=== PATIENT | female | born 1970 | race Caucasian/White ===

== ENCOUNTER → 2020-11-27 15:37 | Outpatient (CLI) | payer OTHER, SELFPAY ==
--- NOTE | 2020-11-27 15:39 | DI.MRI.S_ITS ---
PROCEDURE: MR LUMBAR SPINE WO CON INDICATIONS: L2/3 chronic progressive LBP TECHNIQUE: Noncontrast sagittal T1 spin echo and T2 fast echo, sagittal STIR, axial T1 and T2 fast spin echo through the lumbar spine. In cases with scoliosis, additional coronal T2 fast spin echo may be performed. COMPARISON: [facility], RG, XR PELVIS WITH LATERAL RT, 09/01/2020, 8:38. [facility], RG, XR L-SPINE 2-3V, 09/01/2020, 8:40. FINDINGS: Image quality: Excellent. Alignment and Curvature: 5 lumbar type vertebral bodies are present by plain film. There is loss of normal lumbar lordosis. Bone Marrow: Marrow is of normal overall signal. No acute vertebral body compression fractures. There is mild posterior wedging of the L3 vertebral body. Moderate reactive signal within the endplates adjacent to the L2-L3 intervertebral disc. Spinal Cord: Conus medullaris terminates at the mid L1 level. Visualized cord demonstrates normal signal and size. Paraspinous Soft Tissues: No paravertebral masses. T12-L1: Normal appearance. L1-L2: Normal appearance. L2-L3: Severe disc height loss and desiccation. Mild diffuse disc bulge with superimposed small central and right posterolateral protrusions. Mild epidural lipomatosis. Mild canal stenosis. Mild bilateral foraminal stenosis. L3-L4: Mild diffuse disc bulge. No significant canal stenosis. Mild bilateral foraminal stenosis. L4-L5: Mild facet hypertrophy bilaterally. Mild diffuse disc bulge. Mild canal stenosis. No foraminal stenosis. L5-S1: Mild disc desiccation and diffuse disc bulge. No significant canal, or foraminal stenosis. IMPRESSION: 1. Multilevel degenerative disc and facet disease, as well as ligamentum flavum hypertrophy and epidural lipomatosis. 2. Mild multilevel canal and foraminal stenoses. No neural impingement. 3. Chronic appearing mild L3 compression fracture. Dictated by: Nataliya Lewis M.D. on 11/27/2020 at 16:18 Approved by: Nataliya Lewis M.D. on 11/27/2020 at 16:43
== END ==
PROVIDERS: PCP Internal Medicine; Referring Provider Physical Medicine & Rehabilitation; Visit Provider Physical Medicine & Rehabilitation
DX: M51.26 Other intervertebral disc displacement, lumbar region (principal); M51.36 Other intervertebral disc degeneration, lumbar region; M48.061 Spinal stenosis, lumbar region without neurogenic claudication; M51.37 Other intervertebral disc degeneration, lumbosacral region; M46.06 Spinal enthesopathy, lumbar region; E88.2 Lipomatosis, not elsewhere classified; M48.56XA Collapsed vertebra, not elsewhere classified, lumbar region, initial encounter for fracture
CPT/HCPCS: 72148

== ENCOUNTER → 2020-12-29 09:57 | Outpatient (CLI) | payer OTHER, SELFPAY ==
[2020-12-29 14:13] LABS: COVID19 -Nasal RAPID Negative (Negative)
== END ==
PROVIDERS: PCP Internal Medicine; Referring Provider Physical Medicine & Rehabilitation; Visit Provider Physical Medicine & Rehabilitation
DX: Z20.822 Contact with and (suspected) exposure to COVID-19 (principal)
CPT/HCPCS: 87635; C9803

== ENCOUNTER 2021-01-01 14:18 | Outpatient (CLI) | payer OTHER, SELFPAY ==
[2021-01-01] VITALS (8 sets, daily range): BP systolic 102–130; BP diastolic 59–72; PULSE 73–82; RESP 11–20; TEMP 36.6; O2SAT 97–99
--- NOTE | 2021-01-01 14:20 | DI.RAD.S_ITS ---
PROCEDURE: PAIN L/S TRANSFORAM INJECT BRITT COMPARISON: [facility], MR, MR LUMBAR SPINE WO CON, 11/27/2020, 15:56. INDICATIONS: SPONDYLOSIS FINDINGS: Fluoroscopic spot filming was performed to verify placement of spinal needles on both sides at the L2-L3 level, as labeled on the films. Appropriate location of the needle tips was confirmed by injection of iodinated contrast. IMPRESSION: Intraprocedural examination within normal limits. Dictated by: Dani Sauceda M.D. on 01/01/2021 at 14:49 Approved by: Dani Sauceda M.D. on 01/01/2021 at 14:49
[2021-01-01] MEDS: MIDAZOLAM 5 MG/5 ML VIAL IV (15:02)
[2021-01-01] MEDS: fentaNYL 100 MCG/2 ML INJ 50 MCG IV (15:02)
[2021-01-01] MEDS: IOPAMIDOL 15 ML VIAL 3 ML INJ (15:05)
[2021-01-01] MEDS: BUPIVACAINE 0.25% (PF) VIAL 2 ML INJ (15:06)
[2021-01-01] MEDS: BETAMETHASONE 30 MG/5 ML MDV 12 MG INJ (15:07)
[2021-01-01] MEDS: DEXAMETHASONE 10 MG/ML VIAL 20 MG INJ (15:07)
--- NOTE | 2021-01-01 15:19 | P.PCN_ITS ---
Date/Time/Diagnoses Date of procedure: 01/01/21 Time of procedure: 15:20 Pre-procedure diagnosis: 1. FORAMINAL STENOSIS WITH LE SYMPTOMS Post-procedure diagnosis: same Procedure Notes Procedure: 1. FLUOROSCOPICALLY GUIDED CONTRAST CONTROLLED TRANSFORAMINAL EPIDURAL STEROID INJECTION - BILATERAL L2/3 TFESI Indications: Marcie is referred by Dr. Bentley for treatment of Foraminal Stenosis with bilateral LE Symptoms Physician: Brian Nava Total Fluoroscopy time (seconds): 12 Total sedation minutes: 16 Complications: none Procedure in detail & Post-procedure care: FINDINGS Foraminal Nerve Root Compression secondary to disc disease and facet hypertrophy DESCRIPTION OF PROCEDURE Following review of allergy and review of potential side effects and complications, including, but not necessarily limited to, infection, allergic reaction, local tissue breakdown, stroke, temporary or permanent nerve injury, paralysis, and possible , the patient indicated that the patient understood and agreed to proceed. An informed consent document was signed by the patient, witnessed by a nurse, and placed in the patient's chart. Additionally, other treatment options including medications, modalities, and physical therapy were reviewed with the patient. After review of previous anaesthesic history and IV conscious sedation the patient was deemed safe to proceed with today?s procedure with IV conscious sedation as ASA class II designation. Safety time-out was performed to confirm patient ID, procedure to be performed and site of procedure. IV sedation was accomplished with a combination of 2mg of Versed was administered by the RN after DO order, titrated to patient comfort during the course of the procedure while the patient remained responsive to all verbal commands In the prone position following sterile prep and drape of the lumbar region, the right L2/3 posterior neuroforamen was identified fluoroscopically. The skin was anesthetized via a 25-gauge 1.5-inch needle with 1% lidocaine solution. At this point, a 25-gauge 3.5-inch spinal needle was atraumatically introduced and advanced under fluoroscopic guidance through the posterior right L2/3 neuroforamen to approximately the anterior aspect of the canal. Depth was confirmed on lateral view. Following negative aspiration, injection of approximately 1.5cc of Isovue 200 under live fluoroscopy in the AP view confirmed excellent flow along the nerve root, into the epidural space without vascular or intrathecal uptake observed Radiological data, including multiple fluoroscopic views of the lumbosacral spine, reveal a spinal needle at the right L2/3 posterior neuroforamen. Subsequent views show flow of contrast material flowing superiorly and inferiorly along the nerve root confirming epidural flow. Subsequently, a test dose of 1.5cc of 1% lidocaine solution was administered and patient was observed for two minutes for signs or symptoms of complications, including abdominal pain, shortness of breath, bilateral upper or lower extremity weakness, nausea and vomiting, prior to steroid injection. At this point, a total of 3cc or 20mg of dexamethasone and 6mg betamethasone was injected without incident. Attention was then refocused to the left L2/3 level where the identical procedure was replicated. The procedure tolerated the procedure well without signs or symptoms of complications prior to transfer to the recovery area continued monitoring without incident. The patient was then transferred to the recovery area where they were observed for an appropriate time after the injection. The patient reported a VAS score of 7 prior to the procedure and a post-procedure VAS of 0. POST OP INSTRUCTIONS The patient was provided a Pain Log to continue to record their response to the target-specific procedure prior to follow-up visit with their referring physician. Additionally, specific post-injection care instructions and a contact number to our office were provided if concerns arise regarding possible complica tions associated with the procedure are suspected.
== END 2021-01-01 15:36 | disposition home or self-care (01) ==
PROVIDERS: PCP Internal Medicine; Referring Provider Physical Medicine & Rehabilitation; Visit Provider Physical Medicine & Rehabilitation
DX: M48.061 Spinal stenosis, lumbar region without neurogenic claudication (principal); M51.16 Intervertebral disc disorders with radiculopathy, lumbar region
CPT/HCPCS: 64483; 99152; J0702; J1100; J2250; J3010

== ENCOUNTER → 2021-08-11 14:44 | Outpatient (CLI) | payer OTHER, SELFPAY ==
[2021-08-11 15:20] LABS: COVID19 -Nasal RAPID Negative (Negative)
== END ==
PROVIDERS: PCP Internal Medicine; Visit Provider Physical Medicine & Rehabilitation
DX: Z20.822 Contact with and (suspected) exposure to COVID-19 (principal)
CPT/HCPCS: 87635; C9803

== ENCOUNTER 2021-08-13 10:29 | Outpatient (CLI) | payer OTHER, SELFPAY ==
[2021-08-13] VITALS (10 sets, daily range): BP systolic 115–133; BP diastolic 60–79; PULSE 62–83; RESP 17–23; TEMP 36.1; O2SAT 98–100
--- NOTE | 2021-08-13 10:31 | DI.RAD.S_ITS ---
PROCEDURE: PAIN L/S FACET INJ/BLK 1ST BRITT COMPARISON: None. INDICATIONS: SPONDYLOSIS FINDINGS: A single C-arm fluoroscopic image demonstrates placement of 3 right-sided needles at the levels of L4, L5, and S1. IMPRESSION: Imaging guidance utilized during pain injection. Dictated by: Rober Ward M.D. on 08/13/2021 at 16:56 Approved by: Rober Ward M.D. on 08/13/2021 at 16:57
[2021-08-13] MEDS: IOPAMIDOL 15 ML VIAL 3 ML INJ (11:38)
[2021-08-13] MEDS: BUPIVACAINE 0.5% (PF) VIAL 5 ML INJ (11:38)
[2021-08-13] MEDS: LIDOCAINE 1% 20 ML INJ (11:39)
[2021-08-13] MEDS: MIDAZOLAM 2 MG/2 ML VIAL 4 MG IV (11:40)
--- NOTE | 2021-08-13 11:56 | P.PCN_ITS ---
Date/Time/Diagnoses Date of procedure: 08/13/21 Time of procedure: 11:56 Pre-procedure diagnosis: 1. FACET ARTHROPATHY Post-procedure diagnosis: same Procedure Notes Procedure: 1. BILATERAL- L4, L5 and S1 DIAGNOSTIC MB BLOCKS with LA Anesthetic Indications: Marcie is referred by Dr. Bentley for treatment of Bilateral Axial LBP. Physician: Brian Nava Total Fluoroscopy time (seconds): 15 Total sedation minutes: 20 Complications: none Procedure in detail & Post-procedure care: DESCRIPTION OF PROCEDURE Fluoroscopically guided, contrast-controlled bilateral L4, L5 and S1 medial branch blocks with 0.5cc of 0.5% Marcaine. Following review of allergy and review of potential side effects and complications, including, but not necessarily limited to, infection, allergic reaction, local tissue breakdown, nerve injury, paralysis, stroke and possible , the patient indicated that the patient understood and agreed to proceed. An informed consent document was signed by the patient, witnessed by a nurse, and placed in the patient's chart. After review of previous anaesthesic history and IV conscious sedation the patient was deemed safe to proceed with today's procedure with IV conscious sedation as ASA class II designation. Safety time-out was performed to confirm patient ID, procedure to be performed and site of procedure. IV sedation was accomplished with a combination of 4mg of Versed was administered by the RN after DO order, titrated to patient comfort during the course of the procedure while the patient remained responsive to all verbal commands In the prone position, following sterile prep and drape of the lumbar region, the right L4, L5 and S1 anatomical location of the medial branch of the dorsal ramus was identified fluoroscopically. Subsequently an anesthetic skin wheal using 1% lidocaine solution was initiated at each of the anatomical spots. Subsequently then a 22-gauge 3.5-inch spinal needle was atraumatically introduced and advanced under fluoroscopic guidance at each of the corresponding sites at the right L4, L5 and S1 MB. After negative aspiration, 0.2cc of Isovue 200 was injected, confirming placement without vascular or intrathecal uptake. Subsequently then 0.5cc of 0.5% Marcaine solution was injected at each of the corresponding sites at the right L4, L5 and S1 medial branch locations. The identical procedure was replicated on the left. The patient tolerated the procedure well without signs or symptoms of complications prior to transfer to the recovery area continued monitoring without incident. Post-procedure, the patient was monitored initiating provocative activities to measure the amount of relief from block of the facetogenic pain. The patient reported a VAS of 7 prior to the procedure and a post-procedure VAS of 1. It has been a pleasure to assist in the diagnostic and therapeutic care of your patient. POST OP INSTRUCTIONS The patient was provided with a Pain Log to complete over the next several hours and subsequent days prior to the patient's follow up with the ordering physician. If the patient has cotton program technician relief to the solution applied, then they may be a candidate for medial branch rhizotomy. The patient is aware, was provided, once again, with a Pain Log and will follow up with the referring physician for review and clinical correlation
== END 2021-08-13 12:14 | disposition home or self-care (01) ==
LOC: RAD 10:30
PROVIDERS: PCP Internal Medicine; Referring Provider Physical Medicine & Rehabilitation; Visit Provider Physical Medicine & Rehabilitation
DX: M47.816 Spondylosis without myelopathy or radiculopathy, lumbar region (principal); M47.817 Spondylosis without myelopathy or radiculopathy, lumbosacral region
CPT/HCPCS: 64493; 64494; 99152; J2250